=== PATIENT | male | born 1960 | race Hispanic/Latino ===

== ENCOUNTER 2022-03-09 12:15 | Emergency (ER) | payer OTHER ==
[~2022-03-09] VITALS: Ht 180.3 cm; Wt 112.9 kg
[2022-03-09 12:57] VITALS: BP 97/67
== END 2022-03-09 13:17 | disposition home or self-care (01) ==
LOC: EDH 12:15
DX: K74.60 Unspecified cirrhosis of liver (principal); R18.8 Other ascites

== ENCOUNTER 2022-03-10 08:10 | Emergency (ER) | payer OTHER ==
[~2022-03-10] VITALS: Ht 180.3 cm; Wt 112.9 kg
[2022-03-10 08:58] LABS: BASOPHILS % (AUTO) 0.7 % (0.0-5.0); CREATININE 1.1 mg/dL (0.5-1.5); EOSINOPHILS % (AUTO) 0.5 % (0.0-8.0); HEMATOCRIT 38.4 % (42-54); LYMPHOCYTES % (AUTO) 8.2 % (21.0-51.0); MEAN CORPUSCULAR HEMOGLOBIN 29.4 pg (27.0-33.0); MEAN CORPUSCULAR HGB CONC 33.1 g/dL (32.0-36.0); MEAN CORPUSCULAR VOLUME 88.9 fL (79-99); MONOCYTES % (AUTO) 7.1 % (3.0-13.0); NEUTROPHILS % (AUTO) 82.9 % (40.0-77.0); PLATELET COUNT (AUTO) 371 K/uL (130-400); RED BLOOD CELL COUNT(AUTO) 4.32 MIL/uL (4.50-6.20); RED CELL DISTRIBUTION WIDTH 17.3 % (11.0-15.5); WHITE BLOOD COUNT (AUTO) 18.1 K/uL (4.8-10.8)
[2022-03-10] MEDS ORDERED: HYDROCODONE/ACETAMINOPHEN 10/325 MG TAB PO ONE (09:00)
[2022-03-10 09:03] LABS: INR 1.27 (0.85-1.15); PROTHROMBIN TIME 13.5 SEC (9.6-11.6)
[2022-03-10 09:05] LABS: TOTAL PROTEIN, SERUM 7.4 g/dL (6.0-8.3)
[2022-03-10] MEDS ORDERED: MAG/ALUM/SIMETH 30 ML UDCUP ONE (10:22)
[2022-03-10] MEDS ORDERED: MAG/ALUM/SIMETH 30 ML UDCUP PO ONE (10:30)
[2022-03-10 11:11] VITALS: BP 110/72
[2022-03-10] MEDS ORDERED: ALBUMIN (HUMAN) 25% 200 ML IV ONE (12:24)
[2022-03-10 14:03] LABS: APPEARANCE BODY FLUID CLEAR (CLEAR); BODY FLUID RBC 756 /cu. mm.; BODY FLUID WBC 756 /cu. mm.; COLOR,BODY FLUID YELLOW (LT YELLOW); SPECIMENTYPE,BODY FLUID ASCITES; TOTAL VOLUME,BODY FLUID 5000 mL
[2022-03-10 14:29] LABS: BF LYMPHOCYTE 13 %; BF MESOTHELIAL 71 %; BF MONOCYTE 9 %
[2022-03-10] MEDS ORDERED: LIDOCAINE HCL 1% 20 ML VIAL ONE (16:23)
== END 2022-03-10 13:30 | disposition home or self-care (01) ==
LOC: EDH 08:10
DX: R18.8 Other ascites (principal); E11.9 Type 2 diabetes mellitus without complications; E78.00 Pure hypercholesterolemia, unspecified; Z85.07 Personal history of malignant neoplasm of pancreas
CPT/HCPCS: 36415; 49083; 71045; 80053; 85025; 85610; 87071; 87205; 89051; 96365; 99285; C1729; P9046